=== PATIENT | male | born 1990 | race American Indian/Alaskan Native ===

== ENCOUNTER 2021-06-13 13:40 | Emergency (ER) | payer OTHER, SELFPAY ==
[2021-06-13 15:54] LABS: Basophils % (Auto) 0.4 % (0.0-1.8); Eosinophils # (Auto) 0.2 K/mm3 (0.0-0.4); Eosinophils % (Auto) 2.4 % (0.0-4.3); Hematocrit 41.6 % (35.5-45.6); Hemoglobin 13.6 gm/dl (11.8-15.2); Lymphocytes # (Auto) 1.6 K/mm3 (1.2-5.4); Lymphocytes % (Auto) 23.9 % (13.4-35.0); Mean Corpuscular HGB Conc 33 % (32-34); Mean Corpuscular Volume 92 fl (84-94); Monocytes # (Auto) 0.3 K/mm3 (0.0-0.8); Monocytes % (Auto) 4.6 % (0.0-7.3); Platelet Count 337 K/mm3 (140-440); Red Blood Count 4.51 M/mm3 (3.65-5.03); Red Cell Distribution Width 14.1 % (13.2-15.2)
[2021-06-13 16:02] LABS: BUN/Creatinine Ratio 11; Blood Urea Nitrogen 10 mg/dL (9-20); Calcium 9.3 mg/dL (8.4-10.2); Hemolysis Index 5
[2021-06-13] MEDS ORDERED: POTASSIUM CHLORIDE ER 20 MEQ TAB PO ONE (18:03)
--- NOTE | 2021-06-13 18:03 | Emergency Department Report ---
ED Psych HPI - General Chief Complaint: Psych Stated Complaint: SI Time Seen by Provider: 06/13/21 17:39 Source: patient Mode of arrival: Ambulatory - History of Present Illness Initial Comments: 31-year-old male, no past medical history, presents to ED with complaint of depression. Patient states it is a result of "an accumulation of multiple things I have experienced throughout my life." Patient states he went through a lot during his childhood and now as an adult. Patient is not specific. Patient states he has felt depressed multiple times throughout the last couple of years, but this is his first time seeking help. Patient states he has had suicidal thoughts in the past, but not currently. Patient denies homelessness. Patient states he uses marijuana to cope. He denies using any other drugs. Complaint: feels depressed -: unknown Associated Psychiatric Symptoms: depression Quality: constant Improves With: none Worsens With: none Context: significant life stressor Associated Symptoms: denies other symptoms Treatments Prior to Arrival: none - Related Data Allergies Allergy/AdvReac Type Severity Reaction Status Date / Time No Known Allergies Allergy Unverified 06/13/21 14:39 ED Review of Systems ROS: Stated complaint: SI Other details as noted in HPI Comment: All other systems reviewed and negative Psychiatric: depression. denies: auditory hallucinations, visual hallucinations, homicidal thoughts, suicidal thoughts ED Past Medical Hx - Past Medical History Previous Medical History?: No - Surgical History Past Surgical History?: No - Social History Smoking Status: Current Every Day Smoker Substance Use Type: Marijuana ED Physical Exam - General Limitations: No Limitations General appearance: alert, in no apparent distress - Head Head exam: Present: atraumatic, normocephalic - Eye Eye exam: Present: normal appearance, EOMI - ENT ENT exam: Present: mucous membranes moist - Neck Neck exam: Present: normal inspection - Respiratory Respiratory exam: Present: normal lung sounds bilaterally. Absent: respiratory distress - Cardiovascular Cardiovascular Exam: Present: regular rate, normal rhythm - GI/Abdominal GI/Abdominal exam: Absent: distended - Extremities Exam Extremities exam: Present: normal inspection - Neurological Exam Neurological exam: Present: alert, oriented X3 - Psychiatric Psychiatric exam: Present: depressed - Skin Skin exam: Present: warm, dry, intact, normal color ED Course Vital Signs 06/13/21 06/13/21 06/13/21 14:38 17:49 20:13 Temperature 98 F Pulse Rate 67 63 57 L Respiratory 16 18 18 Rate Blood Pressure 126/71 124/60 109/62 [Right] O2 Sat by Pulse 100 98 100 Oximetry 06/14/21 06/14/21 06/14/21 08:00 19:30 20:00 Temperature 97.9 F 98.7 F Pulse Rate 82 52 L Respiratory 18 18 18 Rate Blood Pressure 106/63 140/84 [Right] O2 Sat by Pulse 100 100 97 Oximetry - Reevaluation(s) Reevaluation #1: 06/13/21 19:54 Patient admitted to current SI and also HI when speaking with mental health deli slicer. Will place patient on 1013. ED Medical Decision Making - Lab Data Result diagrams: 06/13/21 15:26 06/13/21 15:26 - Medical Decision Making 31-year-old male presents to ED with depression, SI, HI. Vital signs are stab le. Labs are unremarkable, except for mild hypokalemia which has been repleted. Patient has been placed on a 1013. He is medically clear for mental health evaluation. Will dispo per psych. Critical care attestation.: If time is entered above; I have spent that time in minutes in the direct care of this critically ill patient, excluding procedure time. ED Disposition Clinical Impression: Depression Disposition: [id number]/TX-[id number] PSY HOSP/PSY UNIT Is pt being admited?: No Condition: Stable Referrals: PRIMARY CARE, [Primary Care Provider] - 3-5 Days
[2021-06-13 18:39] LABS: Bilirubin,Urine NEG (Negative); Blood,Urine NEG (Negative); Color,Urine Yellow (Yellow); Mucus,Urine 3+ /HPF
[2021-06-13 19:07] LABS: Amphetamine Screen,Urine Negative; Benzodiazepines Screen,Urine Negative; Cocaine Screen,Urine Negative; Methadone Screen,Urine Negative; Opiate Screen,Urine Negative
[2021-06-13 19:22] LABS: Cannabinoid Screen,Urine Positive
--- NOTE | 2021-06-14 10:40 | Consultation ---
History of Present Illness - Reason for Consult Consult date: 06/14/21 Reason for consult: SI - History of Present Psychiatric Illness Per ED Note: 31-year-old male, no past medical history, presents to ED with complaint of depression. Patient states it is a result of "an accumulation of multiple things I have experienced throughout my life." Patient states he went through a lot during his childhood and now as an adult. Patient is not specific. Patient states he has felt depressed multiple times throughout the last couple of years, but this is his first time seeking help. Patient states he has had suicidal thoughts in the past, but not currently. Patient denies homelessness. Patient states he uses marijuana to cope. He denies using any other drugs. 31y/o Travis Rodriguez was seen today. He is a/o x 3. He is calm and cooperative. The patient says he's been pushing life experiences to the back of his mind all of his life. He says "from losing my mom to my sister being killed." He says "it has caused me to lose so many people and has impacted my mental health, everything." The patient says he tried to see someone on outpatient yesterday, but no one would see him. He endorses suicidal thoughts, and states "he doesn't know what else to do." The patient says "both of my jobs know I'm here." He denies hallucinations of any kind. The patient also states he hasn't been sleeping. PAST PSYCHIATRIC HISTORY: Diagnoses: Denies Suicide attempts or Self-harm behavior: Denies Prior psychiatric hospitalizations: Denies Substance Abuse history: "weed" Previous psychiatric medications tried: Denies Outpatient treatment: Denies PAST MEDICAL HISTORY: None reported Family Psychiatric History: None reported or documented SOCIAL HISTORY Marital Status: Single Living Arrangements: Boarding house Employment Status: yes, two jobs Access to guns/weapons: Denies Education: High school History of Abuse: Denies Legal History: Denies REVIEW OF SYSTEMS Constitutional: Negative for weight loss ENT: Negative for stridor Respiratory: Negative for cough or hemoptysis All other systems reviewed and are negative MENTAL STATUS EXAMINATION General Appearance and Behavior: Age appropriate, wearing appropriate clothes, cooperative, polite with questioning, fair eye contact, calm Cooperation: cooperative Psychomotor Behavior: Psychomotor normal Mood: "Depressed" Affect and affective range: congruent with stated mood Thought Process: goal directed Thought Content: SI Speech: Normal volume, Regular rate and rhythm Suicidal Ideation: SI Homicidal Ideation: Denies Hallucination: Denies Delusions: None elicited Impulse Control: Intact Insight and Judgment: Limited Memory: Intact Attention: attentive, engaging Orientation: Alert and oriented Diagnoses: Major Depressive Disorder Treatment Plan: 1013 Zoloft 25mg po daily Trazodone 50mg po qhs Sitter: Per primary Medical: Per primary Disposition: Recommend acute psychiatric inpatient treatment Will follow. Thanks Case staffed with Dr. Benjamin Medications and Allergies Allergies Allergy/AdvReac Type Severity Reaction Status Date / Time No Known Allergies Allergy Unverified 06/13/21 14:39 Active Meds: Active Medications Potassium Chloride (Potassium Chloride Er 20 Meq Tab) 40 meq PO ONCE DARBY Stop: 06/14/21 12:30 Mental Status Exam - Vital signs Last Vital Signs Temp 97.9 F 06/14/21 08:00 Pulse 82 06/14/21 08:00 Resp 18 06/14/21 08:00 BP 106/63 06/14/21 08:00 Pulse Ox 100 06/14/21 08:00 Results Result Diagrams: 06/13/21 15:26 06/13/21 15:26 Abnormal lab results 06/13/21 06/13/21 06/13/21 Range/Units 15:26 15:26 15:26 Potassium 3.5 L (3.6-5.0) mmol/L Glucose 142 H (75-100) mg/dL Ur Specific [place] (1.003-1.030) Salicylates < 0.3 L (2.8-20.0) mg/dL Acetaminophen 5.0 L (10.0-30.0) ug/mL 06/13/21 Range/Units 17:50 Potassium (3.6-5.0) mmol/L Glucose (75-100) mg/dL Ur Specific [place] 1.031 H (1.003-1.030) Salicylates (2.8-20.0) mg/dL Acetaminophen (10.0-30.0) ug/mL All other labs normal.
[2021-06-14] MEDS ORDERED: POTASSIUM CHLORIDE ER 20 MEQ TAB PO SCH (11:00)
[2021-06-14] MEDS: SERTRALINE 25 MG TAB PO SCH (11:23)
--- NOTE | 2021-06-14 12:22 | Event Note ---
Date: 06/14/21 S: No events reported overnight O: Vital Signs - 24 hr 06/13/21 06/13/21 06/13/21 14:38 17:49 20:13 Temperature 98 F Pulse Rate 67 63 57 L Respiratory 16 18 18 Rate Blood Pressure 126/71 124/60 109/62 [Right] O2 Sat by Pulse 100 98 100 Oximetry 06/14/21 08:00 Temperature 97.9 F Pulse Rate 82 Respiratory 18 Rate Blood Pressure 106/63 [Right] O2 Sat by Pulse 100 Oximetry A: Major depressive disorder P: Awaiting inpatient psychiatric placement
[2021-06-14] MEDS ORDERED: LORazepam 1 MG TAB PO ONE (19:57)
[2021-06-14] MEDS ORDERED: traZODone 50 MG TAB PO SCH (22:00)
[2021-06-14] MEDS ORDERED: ZIPRASIDONE MESYLATE 20 MG VIAL IM ONE ×2 (22:16→22:18)
[2021-06-14] MEDS ORDERED: WATER FOR INJ Sterile (PF) 10 ML ONE (22:18)
--- NOTE | 2021-06-14 22:19 | Event Note ---
Date: 06/14/212217 Evaluated patient approximately 1 hour ago. He was agitated and placed exclusion. Seclusion patient was throwing furniture around in the room. I have ordered Alisha NEWMAN for the patient as well as an EKG to evaluate his QTC.
[2021-06-15 00:58] VITALS: BP 140/84
--- NOTE | 2021-06-15 10:22 | Progress Note ---
Subjective - Reason for Consult Consult date: 06/15/21 Reason for consult: SI - Chief Complaint Chief complaint: The patient was seen today, he is awake, a/o x 4. H is calm and cooperative. He does states "I'm anxious to leave." He says "I thought I was going to get help but I'm still here." He says "can yall get me in to see somebody for help today." The patient verbalizes suicidal thoughts on and off. REVIEW OF SYSTEMS Constitutional: Negative for weight loss ENT: Negative for stridor Respiratory: Negative for cough or hemoptysis All other systems reviewed and are negative MENTAL STATUS EXAMINATION General Appearance and Behavior: Age appropriate, wearing appropriate clothes, cooperative, polite with questioning, fair eye contact, calm Cooperation: cooperative Psychomotor Behavior: Psychomotor normal Mood: "Depressed" Affect and affective range: congruent with stated mood Thought Process: goal directed Thought Content: Denies Speech: Normal volume, Regular rate and rhythm Suicidal Ideation: SI Homicidal Ideation: Denies Hallucination: Denies Delusions: None elicited Impulse Control: Intact Insight and Judgment: Limited Memory: Intact Attention: attentive, engaging Orientation: Alert and oriented Diagnoses: Major Depressive Disorder Treatment Plan: 1013 Zoloft 25mg po daily Trazodone 50mg po qhs Sitter: Per primary Medical: Per primary Disposition: Recommend acute psychiatric inpatient treatment Will follow. Thanks Case staffed with Dr. Benjamin Mental Status Exam - Vital signs Last Vital Signs Temp 98.7 F 06/14/21 20:00 Pulse 52 L 06/14/21 20:00 Resp 18 06/14/21 20:00 BP 140/84 06/14/21 20:00 Pulse Ox 97 06/14/21 20:00
--- NOTE | 2021-06-15 11:13 | Event Note ---
Date: 06/15/21 S: Patient reportedly became agitated last night after finding out he was not going home prompting staff to place him in seclusion. Patient has since improved O: 112/62, pulse 64, SPO2 100% on room air, temperature 98.1 F A: Major depressive disorder/1013 P: Awaiting psych placement
[2021-06-15] MEDS: SERTRALINE 25 MG TAB PO SCH (13:27)
== END 2021-06-15 15:01 ==
LOC: EEVIPCON 13:40 → ED 13:40
DX: F32.9 Major depressive disorder, single episode, unspecified (principal); Z20.822 Contact with and (suspected) exposure to COVID-19; F17.200 Nicotine dependence, unspecified, uncomplicated; F12.90 Cannabis use, unspecified, uncomplicated; Z79.899 Other long term (current) drug therapy
CPT/HCPCS: 36415; 80048; 80307; 81001; 85025; 96372; 99285; J3486; U0003; 80320; G0480